=== PATIENT | female | born 1960 | race Caucasian/White ===

== ENCOUNTER 2017-02-20 11:05 | Emergency (ER) ==
[2017-02-20 11:13] VITALS: BP 152/103; TEMP 100; BMI 20.5
[2017-02-20] MEDS ORDERED: SOLU-MEDROL 125 MG IVP STA (11:23)
[2017-02-20] MEDS ORDERED: DUONEB NEB STA ×2 (11:23→12:37)
[2017-02-20 11:40] LABS: BASOPHILS % (AUTO) 0.2 % (0.0-3.0); EOSINOPHILS # (AUTO) 0.2 K/ul (0.0-0.7); EOSINOPHILS % (AUTO) 1.4 % (0.0-7.0); HEMATOCRIT 42.1 % (37.0-47.0); HEMOGLOBIN 14.6 g/dl (12.0-16.0); IMMATURE GRANULOCYTE % (AUTO) 0.3 % (0.0-5.0); LYMPHOCYTES # (AUTO) 2.4 K/uL (0.60-3.4); LYMPHOCYTES % (AUTO) 18.7 (10.0-50.0); MEAN CORPUSCULAR HGB CONC 34.7 (31.8-35.4); MEAN CORPUSCULAR VOLUME 86.6 fl (81.0-99.0); MONOCYTES % (AUTO) 7.8 (0-10); NEUTROPHILS % (AUTO) 71.6; PLATELET COUNT 231 10^3/uL (140-440); RED BLOOD COUNT 4.86 10^6/ul (4.20-5.40); WHITE BLOOD COUNT 12.56 K/ul (4.6-10.2)
[2017-02-20 11:46] LABS: ABG BASE EXCESS 0 (-2.0-2.0); ABG HCO3 25.2 (22.0-26.0); ABG PCO2 40.7 mmHg (35-45); ABG PH 7.399 (7.35-7.45); ABG TCO2 26 (22.0-28.0)
[2017-02-20 12:07] LABS: ALANINE AMINOTRANSFERASE 22 U/L (12-78); ALBUMIN/GLOBULIN RATIO 1.29; ALKALINE PHOSPHATASE 91 U/L (42-98); ANION GAP 14.2; ASPARTATE AMINO TRANSFERASE 24 U/L (15-37); BILIRUBIN,TOTAL 0.31 mg/dL (0.00-1.20); BLOOD UREA NITROGEN 14 mg/dL (7-18); BUN/CREATININE RATIO 17.28; CALCIUM 9.4 mg/dL (8.2-10.2); CARBON DIOXIDE 22 mmol/L (21-32); CHLORIDE 106 mmol/L (98-107); CREATINE KINASE 111 U/L; CREATININE 0.81 mg/dL (0.60-1.30); GLUCOSE 81 mg/dL (70-110); POTASSIUM 4.2 mmol/L (3.5-5.10); SODIUM 138 mmol/L (136-145); TOTAL PROTEIN 7.1 g/dL (6.4-8.2)
[2017-02-20 12:15] LABS: FLU INTERNAL QC INTERNAL QC VALID; RAPID FLU A NEGATIVE (NEGATIVE); RAPID FLU B NEGATIVE (NEGATIVE)
--- NOTE | 2017-02-20 12:20 | CT ---
EXAM: CT chest without contrast. HISTORY: Cough. COMPARISON: None available. TECHNIQUE: Multiple axial images of the chest were obtained without intravenous contrast. Images we re reformatted in the sagittal and coronal planes. FINDINGS: Evaluation for lymphadenopathy is limited by lack of intravenous contrast. There are mult iple small mediastinal lymph nodes present. Calcified mediastinal and right hilar lymph nodes also p resent. Heart size is normal. There is no pericardial effusion. There are calcified granulomatous changes noted in the lungs. Dependent mucus in both main bronchi. No consolidation, pleural effusio n or pneumothorax identified. Focal linear density in the right lower lobe on axial image 32 likely an area of scarring. Limited images of the upper abdomen demonstrate no acute abnormality. There has been previous ACDF. Degenerative changes present in the thoracic spine. IMPRESSION: No acute cardiopulmonary process.
[2017-02-20] MEDS ORDERED: NORCO 10-325 PO STA (12:38)
--- NOTE | 2017-02-20 12:42 | ED.PDOC ---
General ED Provider: Dr. JAYESH SAINI Chief Complaint: Respiratory Complaint Stated Complaint: COUGH, WHEEZ Time Seen by Physician: 11:00 (SEENN WITH NURSE AT ALL TIMES ) Mode of Arrival: Walk-In Information Source: Patient Exam Limitations: No limitations Primary Care Provider: MIGUEL LENZ Nursing and Triage Documentation Reviewed and Agree: Yes Respiratory Complaint Exam - Respiratory Complaint/Exam Symptoms Are: Resolved Timing: Intermittent Initial Severity: Moderate Current Severity: Moderate Location: Throat, Chest Character: Reports: Non-productive cough Aggravating: Reports: None Alleviating: Reports: Bronchodilators, Spontaneous resolution Associated Signs and Symptoms: Reports: Wheezing. Denies: Rapid breathing, Dyspnea, Fever, Chills, Chest pain, Pleuritic chest pain, Hemoptysis, Dizziness , Calf pain, Calf swelling, Edema, URI, Nasal congestion, Hoarseness, Sinus discomfort, Vomiting, Sore throat, Weight loss, Decreased oral intake, Increased thirst, Increased appetite, Increased urination Related History: Reports: Similar episode History of Healthcare-Acquired Pneumonia: No Related Surgical History: Reports: None Pulmonary Embolism Risk Factors: Smoking Cardiac Risk Factors: Reports: Smoking Pseudomonas Risk Factors: Reports: None Tuberculosis Risk Factors: Reports: None Status Asthmaticus Risk Factors: Reports: None Home Oxygen Use: No Recent Stress Test: No Recent Echo/LV Function: No Current Antibiotic Use: No Current Asthma Medication Use: No Respiratory Distress: None Inadequate Respiratory Effort: No Dysphagia Present: No Stridor Present: No JVD Present: No Retractions: Not Present Diminished Breath Sounds: Yes Prolonged Respiration: Expiratory phase Sinus Tenderness: None Grunting Respirations: No Kussmaul Respirations: No Differential Diagnoses: Asthma, Pneumonia, Bronchitis Review of Systems - Review Of Systems Constitutional: Reports: No symptoms Eyes: Reports: No symptoms Ears, Nose, Mouth, Throat: Reports: No symptoms Respiratory: Reports: Cough, Wheezing Cardiac: Reports: No symptoms GI: Reports: No symptoms : Reports: No symptoms Musculoskeletal: Reports: No symptoms Skin: Reports: No symptoms Neurological: Reports: No symptoms Endocrine: Reports: No symptoms Hematologic/Lymphatic: Reports: No symptoms All Other Systems: Reviewed and Negative Past Medical History - Past Medical History Previously Healthy: Yes Endocrine: Reports: None Cardiovascular: Reports: None Respiratory: Reports: Asthma Hematological: Reports: None Gastrointestinal: Reports: None Genitourinary: Reports: None Neuro/Psych: Reports: None Musculoskeletal: Reports: None Cancer: Reports: None Last Menstrual Period: none - Surgical History General Surgical History: Reports: None - Family History Family History: Reports: None - Social History Smoking Status: Current every day smoker Hx Substance Use: No Alcohol Screening: None Physical Exam - Physical Exam Appearance: Well-appearing, No pain distress, Well-nourished Eyes: REMIGIO, EOMI, Conjunctiva clear ENT: Ears normal, Nose normal, Oropharynx normal Respiratory: Airway patent, Breath sounds clear, Breath sounds equal, Respirations nonlabored Cardiovascular: RRR, Pulses normal, No rub, No murmur GI/: Soft, Nontender, No masses, Bowel sounds normal, No Organomegaly Musculoskeletal: Normal strength, ROM intact, No edema, No calf tenderness Skin: Warm, Dry, Normal color Neurological: Sensation intact, Motor intact, Reflexes intact, Cranial nerves intact, Alert, Oriented Psychiatric: Affect appropriate, Mood appropriate Interpretation - Radiology Interpretation Radiology Interpretation By: Radiologist Radiology Results: No acute changes - Clinical Quality Manager Rate: Normal Rhythm: Sinus Ectopy: None - EKG Interpretation Rate: Normal Rhythm: Sinus Ectopy: None Indian: NL ST Segment: Normal Critical Care Note - Critical Care Note Total Time (mins): 0 Course - Course Hematology/Chemistry: 02/20/17 11:34 02/20/17 11:34 Orders, Labs, Meds: Lab Review 02/20/17 02/20/17 02/20/17 11:21 11:34 11:34 WBC 12.56 H RBC 4.86 Hgb 14.6 Hct 42.1 MCV 86.6 MCH 30.0 MCHC 34.7 RDW Coeff of Jules 13.0 Plt Count 231 Immature Gran % (Auto) 0.3 Neut % (Auto) 71.6 Lymph % (Auto) 18.7 [place] % (Auto) 7.8 Eos % (Auto) 1.4 Baso % (Auto) 0.2 Immature Gran # (Auto) 0.0 Neut # 9.0 H Lymph # 2.4 Josephine # 1.0 Eos # 0.2 Baso # 0.0 Puncture Site R brach O2 Saturation 96.0 ABG pH 7.399 ABG pCO2 40.7 ABG pO2 82.0 L ABG HCO3 25.2 ABG Total CO2 26 ABG Base Excess 0 Joe Test + FiO2 % 21.0 Sodium 138 Potassium 4.2 Chloride 106 Carbon Dioxide 22 Anion Gap 14.2 BUN 14 Creatinine 0.81 Estimated GFR (MDRD) 74.00 BUN/Creatinine Ratio 17.28 Glucose 81 Calcium 9.4 Total Bilirubin 0.31 AST 24 ALT 22 Alkaline Phosphatase 91 Total Creatine Kinase 111 Troponin I < 0.0100 Total Protein 7.1 Albumin 4.0 Globulin 3.1 Albumin/Globulin Ratio 1.29 Influenza A (Rapid) Influenza B (Rapid) 02/20/17 11:50 WBC RBC Hgb Hct MCV MCH MCHC RDW Coeff of Jules Plt Count Immature Gran % (Auto) Neut % (Auto) Lymph % (Auto) [place] % (Auto) Eos % (Auto) Baso % (Auto) Immature Gran # (Auto) Neut # Lymph # Josephine # Eos # Baso # Puncture Site O2 Saturation ABG pH ABG pCO2 ABG pO2 ABG HCO3 ABG Total CO2 ABG Base Excess Joe Test FiO2 % Sodium Potassium Chloride Carbon Dioxide Anion Gap BUN Creatinine Estimated GFR (MDRD) BUN/Creatinine Ratio Glucose Calcium Total Bilirubin AST ALT Alkaline Phosphatase Total Creatine Kinase Troponin I Total Protein Albumin Globulin Albumin/Globulin Ratio Influenza A (Rapid) Negative Influenza B (Rapid) Negative Orders Category Date Time Status ABG DRAW REQUEST Stat CARDIO 02/20/17 11:21 Completed EKG-(ED ONLY) Stat CARDIO 02/20/17 11:21 Completed NEBULIZER TREATMENT Stat CARDIO 02/20/17 11:23 Completed NEBULIZER TREATMENT Stat CARDIO 02/20/17 12:37 Ordered ED IV/MEDIPORT/POWERPORT .ONCE EMERGENCY 02/20/17 11:21 Active ABG Stat LAB 02/20/17 11:21 Completed CBC W/ AUTO DIFF Stat LAB 02/20/17 11:34 Completed COMPREHENSIVE METABOLIC PANEL Stat LAB 02/20/17 11:34 Completed CREATINE KINASE Stat LAB 02/20/17 11:34 Completed MOLECULAR GROUP A STREP Stat LAB 02/20/17 11:50 Results RAPID FLU A/B Stat LAB 02/20/17 11:50 Completed STREP SCREEN Stat LAB 02/20/17 11:50 Results TROPONIN I Stat LAB 02/20/17 11:34 Completed 0.9 % Sodium Chloride [Saline Flush] MEDS 02/20/17 11:21 Active 1 syr IVF PRN PRN Hydrocodone Bit/Acetaminophen [[place] 10-325] MEDS 02/20/17 12:38 Stat 1 tab PO ONCE STA Ipratropium/Albuterol Neb [Duoneb] MEDS 02/20/17 11:23 Discontinued 1 vial NEB ONCE STA Ipratropium/Albuterol Neb [Duoneb] MEDS 02/20/17 12:37 Stat 1 vial NEB ONCE STA Methylprednisolone Sod Succ/Pf [Solu-Medrol 125 mg] MEDS 02/20/17 11:23 Discontinued 125 mg IVP ONCE STA CT CHEST W/O CONTRAST Stat RADS 02/20/17 11:22 Completed Medications Generic Name Dose Route Start Last Admin Trade Name Freq PRN Reason Stop Dose Admin Sodium Chloride 1 syr 02/20/17 11:21 02/20/17 11:42 Saline Flush IVF 1 syr PRN PRN Administration To flush IV Discontinued Medications Generic Name Dose Route Start Last Admin Trade Name Freq PRN Reason Stop Dose Admin Acetaminophen/Hydrocodone Bitart 1 tab 02/20/17 12:38 [place] 10-325 PO 02/20/17 12:39 ONCE STA Albuterol/Ipratropium 1 vial 02/20/17 11:23 02/20/17 11:32 Duoneb NEB 02/20/17 11:24 1 vial ONCE STA Administration Albuterol/Ipratropium 1 vial 02/20/17 12:37 Duoneb NEB 02/20/17 12:38 ONCE STA Methylprednisolone Sodium Succinate 125 mg 02/20/17 11:23 02/20/17 11:41 Solu-Medrol 125 Mg IVP 02/20/17 11:24 125 mg ONCE STA Administration Vital Signs: Temp Pulse Resp BP Pulse Ox 02/20/17 11:05 100.0 F H 79 24 152/103 H 96 Departure - Departure Time of Disposition: 12:42 Disposition: HOME SELF-CARE Discharge Problem: Asthma Instructions: Asthma (ED), Wheezing (ED), Bronchospasm (ED), How Your Lungs Work (ED) Condition: Good Pt referred to PMD for follow-up: Yes Additional Instructions: Please call your Family Physician as soon as possible to schedule a follow-up appointment. Allergies/Adverse Reactions: Allergies morphine Adverse Reaction (Verified 02/20/17 11:10) Penicillins Adverse Reaction (Verified 02/20/17 11:10) prochlorperazine [From Compazine] Adverse Reaction (Verified 02/20/17 11:10) promethazine [From Phenergan] Adverse Reaction (Verified 02/20/17 11:10) Home Medications: Ambulatory Orders Alprazolam [Xanax] 0.5 mg PO PRN PRN 02/20/17 Hydrocodone Bit/Acetaminophen [[place] 7.5-325] 1 tab PO TID 02/20/17 Temazepam [Restoril] 15 mg PO BEDTIME 02/20/17 Tizanidine HCl [Zanaflex] 4 mg PO PRN PRN 02/20/17
== END 2017-02-20 13:01 | disposition home or self-care (01) ==
LOC: ED 11:05
DX: J45.909 Unspecified asthma, uncomplicated (principal); F17.210 Nicotine dependence, cigarettes, uncomplicated
CPT/HCPCS: 36415; 80053; 82550; 82803; 84484; 85025; 87651; 87804; 87880; 93005; 93010; 94640; 96374; 99283

== ENCOUNTER 2017-03-29 23:01 | Emergency (ER) ==
[2017-03-29 23:05] VITALS: TEMP 98; BMI 20.1
[2017-03-29] MEDS ORDERED: ZOFRAN 4 MG/2 ML IM STA (23:21)
[2017-03-29] MEDS ORDERED: DILAUDID 1 MG/ML SYRINGE IM STA (23:21)
--- NOTE | 2017-03-29 23:55 | ED.PDOC ---
General ED Provider: Dr. TIM FARIAS Chief Complaint: Back Pain Stated Complaint: Was moved some furniture at work, which started the pain in the neck radiates ro right arm. Time Seen by Physician: 23:53 Mode of Arrival: Walk-In Information Source: Patient, Family Primary Care Provider: MIGUEL LENZ Nursing and Triage Documentation Reviewed and Agree: Yes Musculoskeletal Complaint Exam - Neck Pain Complaint/Exam Mechanism of Injury: Reports: No known trauma Symptoms Are: Still present Timing: Constant Episodes Lasting: Days Initial Severity: Moderate Current Severity: Severe Location: Reports: Radiating Character: Reports: Aching, Throbbing Aggravating: Reports: Position, Movement Alleviating: Reports: None Associated Signs and Symptoms: Denies: Swelling, Redness, Bruising, Fever, Nuchal rigidity, Weakness, Headache, Paresthesia Meningitis Risk Factors: Reports: None Cervical Spine Injury Risk Factors: Reports: None Related Surgical History: Reports: None Carotid Bruit Present: No Pain on Passive Flexion: No Positive Kernig's Sign: No ROM Limited In: Present: Flexion, Extension, Right, Left Tenderness: Present: Midline, Paraspinal Radiates to: Present: Right arm Focal Weakness: Present: None Focal Sensory Loss: Reports: None Differential Diagnoses: Cervical Fracture, Dystonia, Sprain, Strain Review of Systems - Review Of Systems Constitutional: Reports: No symptoms Eyes: Reports: No symptoms Ears, Nose, Mouth, Throat: Reports: No symptoms Respiratory: Reports: No symptoms Cardiac: Reports: No symptoms GI: Reports: No symptoms : Reports: No symptoms Musculoskeletal: Reports: Back pain, Joint pain Skin: Reports: No symptoms Neurological: Reports: No symptoms Endocrine: Reports: No symptoms Hematologic/Lymphatic: Reports: No symptoms All Other Systems: Reviewed and Negative Past Medical History - Past Medical History Previously Healthy: Yes Endocrine: Reports: None Cardiovascular: Reports: None Respiratory: Reports: Asthma Hematological: Reports: None Gastrointestinal: Reports: None Genitourinary: Reports: None Neuro/Psych: Reports: None Musculoskeletal: Reports: None Cancer: Reports: None Last Menstrual Period: 22 YEARS AGO - Surgical History General Surgical History: Reports: None - Family History Family History: Reports: None - Social History Smoking Status: Current every day smoker, Heavy tobacco smoker Smoking Cessation Counseling Time: > 10 min Hx Substance Use: No Alcohol Screening: None - Immunizations Tetanus Shot up to Date: Yes Physical Exam - Physical Exam Appearance: Ill-appearing Pain Distress: Moderate Eyes: REMIGIO, EOMI, Conjunctiva clear ENT: Ears normal, Nose normal, Oropharynx normal Respiratory: Airway patent, Breath sounds clear, Breath sounds equal, Respirations nonlabored Cardiovascular: RRR, Pulses normal, No rub, No murmur GI/: Soft, Nontender, No masses, Bowel sounds normal, No Organomegaly Musculoskeletal: Normal strength, ROM intact, No edema, No calf tenderness Skin: Warm, Dry, Normal color Neurological: Sensation intact, Motor intact, Reflexes intact, Cranial nerves intact, Alert, Oriented Psychiatric: Affect appropriate, Mood appropriate Interpretation - Radiology Interpretation Radiology Interpretation By: Radiologist Radiology Results: Negative Exam Interpreted: CT Scan Critical Care Note - Critical Care Note Total Time (mins): 0 Course - Course Orders, Labs, Meds: Orders Category Date Time Status Hydromorphone HCl [Dilaudid 1 mg/ml Syringe] MEDS 03/29/17 23:21 Discontinued 1 mg IM ONCE STA Ondansetron HCl/Pf [Zofran 4 mg/2 ml] MEDS 03/29/17 23:21 Discontinued 4 mg IM ONCE STA CT CERVICAL SPINE W/O CONTRAST Stat RADS 03/29/17 23:21 Completed Medications Discontinued Medications Generic Name Dose Route Start Last Admin Trade Name Freq PRN Reason Stop Dose Admin Hydromorphone HCl 1 mg 03/29/17 23:21 03/29/17 23:39 Dilaudid 1 Mg/Ml Syringe IM 03/29/17 23:22 1 mg ONCE STA Administration Ondansetron HCl 4 mg 03/29/17 23:21 03/29/17 23:40 Zofran 4 Mg/2 Ml IM 03/29/17 23:22 4 mg ONCE STA Administration Vital Signs: Temp Pulse Resp BP Pulse Ox 03/29/17 23:01 98 F 106 H 22 137/106 H 97 Departure - Departure Time of Disposition: 00:06 Disposition: HOME SELF-CARE Discharge Problem: Neck sprain Qualifiers: Encounter type: initial encounter Qualified Code(s): S13.9XXA - Sprain of joints and ligaments of unspecified parts of neck, initial encounter Instructions: Cervical Strain (ED) Condition: Good Pt referred to PMD for follow-up: No Additional Instructions: rest hot pack continue taking home medications Allergies/Adverse Reactions: Allergies morphine Adverse Reaction (Verified 02/20/17 11:10) Penicillins Adverse Reaction (Verified 02/20/17 11:10) prochlorperazine [From Compazine] Adverse Reaction (Verified 02/20/17 11:10) promethazine [From Phenergan] Adverse Reaction (Verified 02/20/17 11:10) Home Medications: Ambulatory Orders Alprazolam [Xanax] 0.5 mg PO PRN PRN 02/20/17 Hydrocodone Bit/Acetaminophen [[place] 7.5-325] 1 tab PO TID 02/20/17 Temazepam [Restoril] 15 mg PO BEDTIME 02/20/17 Tizanidine HCl [Zanaflex] 4 mg PO PRN PRN 02/20/17 Disposition Discussed With: Patient, Family
--- NOTE | 2017-03-30 00:02 | CT ---
EXAM: CT of the cervical spine without contrast. HISTORY: Neck pain. Previous neck surgery. PROCEDURE: Contiguous axial CT images of the cervical spine without contrast with coronal and sagitt al reformats. FINDINGS: There is anterior plate and screw fixation at C5, C6 and C7 which appears intact and in blane quate position. There is normal alignment of the cervical vertebral bodies and facets. The vertebra l body heights are maintained. There is multilevel disc space narrowing. There are small posterior osteophytes at multiple levels of the cervical spine. There is multilevel facet arthropathy. The C1 -2 relationship is maintained. No prevertebral soft tissue abnormality. Impression: Anterior fusion as described with normal alignment of the cervical spine. Degenerative changes as described.
[2017-03-30 00:10] VITALS: BP 136/82
== END 2017-03-30 00:13 | disposition home or self-care (01) ==
LOC: ED 23:01
DX: S13.9XXA Sprain of joints and ligaments of unspecified parts of neck, initial encounter (principal); X50.0XXA Overexertion from strenuous movement or load, initial encounter; F17.210 Nicotine dependence, cigarettes, uncomplicated
CPT/HCPCS: 96372; 99283

== ENCOUNTER 2017-11-17 13:33 | Emergency (ER) | payer OTHER ==
[2017-11-17 13:39] VITALS: BP 138/92; TEMP 99; BMI 22.8
[2017-11-17] MEDS ORDERED: TORADOL IVP STA (14:03)
[2017-11-17] MEDS ORDERED: SODIUM CHLORIDE 1,000 ML IV STA (14:04)
--- NOTE | 2017-11-17 14:14 | ED.PDOC ---
General ED Provider: Dr. YONY LUNA MD Chief Complaint: Urinary Problem Stated Complaint: pain in Left flank, dysuria, hematuria Time Seen by Physician: 14:00 Mode of Arrival: Walk-In Information Source: Patient Exam Limitations: No limitations Primary Care Provider: MIGUEL LENZ Nursing and Triage Documentation Reviewed and Agree: Yes Does patient meet sepsis criteria?: No System Inflammatory Response Syndrome: Not Applicable Sepsis Protocol: For patient's 13 years and over: Temp is 96.8 and below OR 101 and greater Pulse >90 BPM Resp >20/minute Acutely Altered Mental Status Are patient's symptoms suggestive of a new infection, such as: -Pneumonia -Skin, Soft Tissue -Endocarditis -UTI -Bone, Joint Infection -Implantable Device -Acute Abdominal Infection -Wound Infection -Meningitis -Blood Stream Catheter Infection -Unknown Review of Systems - Review Of Systems Constitutional: Reports: Other Eyes: Reports: No symptoms Ears, Nose, Mouth, Throat: Reports: No symptoms Respiratory: Reports: No symptoms Cardiac: Reports: No symptoms GI: Reports: No symptoms, Abdominal pain, Nausea : Reports: Burning, Dysuria, Flank pain, Hematuria Musculoskeletal: Reports: No symptoms Skin: Reports: No symptoms Neurological: Reports: No symptoms Endocrine: Reports: No symptoms Hematologic/Lymphatic: Reports: No symptoms All Other Systems: Reviewed and Negative Past Medical History - Past Medical History Previously Healthy: Yes Endocrine: Reports: None Cardiovascular: Reports: None Respiratory: Reports: Asthma Hematological: Reports: None Gastrointestinal: Reports: None Genitourinary: Reports: None Neuro/Psych: Reports: None Musculoskeletal: Reports: None Cancer: Reports: None Last Menstrual Period: none - Surgical History General Surgical History: Reports: None - Family History Family History: Reports: None - Social History Smoking Status: Current every day smoker, Heavy tobacco smoker Hx Substance Use: No Alcohol Screening: None Physical Exam - Physical Exam Appearance: Well-appearing, No pain distress, Well-nourished Pain Distress: Moderate Eyes: REMIGIO, EOMI, Conjunctiva clear ENT: Ears normal, Nose normal, Oropharynx normal Respiratory: Airway patent, Breath sounds clear, Breath sounds equal, Respirations nonlabored Cardiovascular: RRR, Pulses normal, No rub, No murmur GI/: Bowel sounds normal, Tender Musculoskeletal: Normal strength, ROM intact, No edema, No calf tenderness Skin: Warm, Dry, Normal color Critical Care Note - Critical Care Note Total Time (mins): 0 Course - Course Hematology/Chemistry: 11/17/17 02:15 Orders, Labs, Meds: Lab Review 11/17/17 11/17/17 02:15 13:50 WBC 10.82 H RBC 4.37 Hgb 13.3 Hct 38.7 MCV 88.6 MCH 30.4 MCHC 34.4 RDW Coeff of Jules 13.3 Plt Count 221 Immature Gran % (Auto) 0.4 Neut % (Auto) 70.0 Lymph % (Auto) 19.3 [place] % (Auto) 9.4 Eos % (Auto) 0.8 Baso % (Auto) 0.1 Immature Gran # (Auto) 0.0 Neut # (Auto) 7.6 H Lymph # (Auto) 2.1 [place] # (Auto) 1.0 Eos # (Auto) 0.1 Baso # (Auto) 0.0 Urine Color Yellow Urine Clarity Clear Urine pH 6.0 Ur Specific [place] <=1.005 Urine Protein Negative Urine Glucose (UA) Negative Urine Ketones Negative Urine Blood 2+ Urine Nitrite Negative Urine Bilirubin Negative Urine Urobilinogen 0.2 Ur Leukocyte Esterase 1+ Urine Microscopic RBC 5-10 Urine Microscopic WBC 10-20 Ur Squamous Epith Cells Not present Orders Category Date Time Status CBC W/ AUTO DIFF Stat LAB 11/17/17 02:15 Completed URINALYSIS C & S IF INDICATED Stat LAB 11/17/17 13:50 Completed URINE CULTURE Stat LAB 11/17/17 13:50 Received Ketorolac Tromethamine [Toradol] MEDS 11/17/17 14:03 Discontinued 60 mg IVP ONCE STA Sodium Chloride 0.9% [Sodium Chloride] 1,000 ml MEDS 11/17/17 14:[address] ABD/PEL WO RENAL STONE PROT Stat RADS 11/17/17 14:05 Completed Medications Discontinued Medications Generic Name Dose Route Start Last Admin Trade Name Freq PRN Reason Stop Dose Admin Sodium Chloride 1,000 mls @ 1,000 mls/hr 11/17/17 14:04 11/17/17 14:41 Sodium Chloride IV 11/17/17 15:03 1,000 mls/hr BOLUS STA Administration Ketorolac Tromethamine 60 mg 11/17/17 14:03 11/17/17 14:19 Toradol IVP 11/17/17 14:04 60 mg ONCE STA Administration Vital Signs: Temp Pulse Resp BP Pulse Ox 11/17/17 13:34 99.0 F 96 H 20 138/92 H 95 Departure - Departure Time of Disposition: 15:13 Disposition: HOME SELF-CARE Discharge Problem: Urinary tract infection Condition: Fair Pt referred to PMD for follow-up: Yes IPMP verified?: No Allergies/Adverse Reactions: Allergies morphine Adverse Reaction (Verified 11/17/17 13:38) Penicillins Adverse Reaction (Verified 11/17/17 13:38) prochlorperazine [From Compazine] Adverse Reaction (Verified 11/17/17 13:38) promethazine [From Phenergan] Adverse Reaction (Verified 11/17/17 13:38) Home Medications: Ambulatory Orders Alprazolam [Xanax] 0.5 mg PO PRN PRN 02/20/17 Hydrocodone Bit/Acetaminophen [[place] 7.5-325] 1 tab PO TID 02/20/17 Temazepam [Restoril] 15 mg PO BEDTIME 02/20/17 Tizanidine HCl [Zanaflex] 4 mg PO PRN PRN 02/20/17 Ciprofloxacin/Ciprofloxa HCl [Ciprofloxacin ER 500 mg Tablet] 500 mg PO 1-2XD # 14 tbmp.24hr MDD 1000mg 11/17/17
--- NOTE | 2017-11-17 14:56 | CT ---
EXAM: CT ABDOMEN AND PELVIS HISTORY: Flank pain, left. TECHNIQUE: CT abdomen and pelvis without intravenous contrast. Images were reconstructed using 3 mm section thickness. Reformations were prepared. COMPARISON: None FINDINGS: Diagnostic limitations exist without including contrast enhanced images. There is no nephrolithiasis , hydronephrosis or perinephric fat stranding. Ureters cannot be followed in their entirety secondar y to the patient's anatomy. Multiple pelvic calcifications are seen suggesting phleboliths. No conv incing evidence of intra ureteral calculus. Urinary bladder has circumferential wall thickening. No focal hepatic lesions identified. Spleen within normal limits. Gallbladder is absent. Pancreas and adrenal glands appear normal. Normal abdominal aorta. There are several prominent periaortic and iliac chain lymph nodes, at least one of which is pathologically enlarged at 15 mm short axis (to th e left of the aortic bifurcation). Stomach is within normal limits. The patient apparently has a his tory of previous appendectomy. Normal bowel gas pattern. No uterus is present. There is no ascites . No ventral abdominal wall hernia. Bones reveal early degenerative endplate changes of the spine. Lung bases are clear. No pneumoperitoneum is seen. IMPRESSION: 1. No nephrolithiasis, hydronephrosis or convincing evidence of intra ureteral calculus. Circumfere ntial thickening of the urinary bladder which may be related to cystitis. Follow up with urology can be considered. 2. Lymph nodes, at least one of which is pathologically enlarged. This could indicate a neoplastic p rocess.
[2017-11-17] MEDS ORDERED: LIDOCAINE HCL 1% SDV IM STA (15:11)
[2017-11-17] MEDS ORDERED: ROCEPHIN IM STA (15:11)
[2017-11-17] MEDS ORDERED: ROCEPHIN 1 GM in SODIUM CHLORIDE 50 ML IV STA (15:24)
[2017-11-17] MEDS ORDERED: ROCEPHIN ONE (15:27)
== END 2017-11-17 16:31 | disposition home or self-care (01) ==
LOC: ED 13:33
DX: N39.0 Urinary tract infection, site not specified (principal); F17.210 Nicotine dependence, cigarettes, uncomplicated
CPT/HCPCS: 36415; 74176; 81001; 85025; 87086; 87186; 96361; 96365; 96375; 99283

== ENCOUNTER 2018-07-18 00:30 | Emergency (ER) | payer OTHER ==
[2018-07-18 00:43] VITALS: TEMP 98.7; BMI 23.6
[2018-07-18] MEDS: DUONEB NEB STA ×2 (00:45→02:00)
--- NOTE | 2018-07-18 00:56 | ED.PDOC ---
General ED Provider: Dr. YONY LUNA MD Chief Complaint: Shortness of Air Stated Complaint: SOB Time Seen by Physician: 00:43 Mode of Arrival: Walk-In Information Source: Patient Exam Limitations: No limitations Primary Care Provider: MIGUEL LENZ Nursing and Triage Documentation Reviewed and Agree: Yes Does patient meet sepsis criteria?: No If yes, has appropriate treatment been initiated?: Yes System Inflammatory Response Syndrome: Pulse >90 BPM Sepsis Protocol: For patient's 13 years and over: Temp is 96.8 and below OR 101 and greater Pulse >90 BPM Resp >20/minute Acutely Altered Mental Status Are patient's symptoms suggestive of a new infection, such as: -Pneumonia -Skin, Soft Tissue -Endocarditis -UTI -Bone, Joint Infection -Implantable Device -Acute Abdominal Infection -Wound Infection -Meningitis -Blood Stream Catheter Infection -Unknown Review of Systems - Review Of Systems Constitutional: Reports: No symptoms Eyes: Reports: No symptoms Ears, Nose, Mouth, Throat: Reports: No symptoms Respiratory: Reports: Cough, Short of air, Wheezing Cardiac: Reports: No symptoms GI: Reports: No symptoms : Reports: No symptoms Musculoskeletal: Reports: No symptoms Skin: Reports: No symptoms Neurological: Reports: No symptoms Endocrine: Reports: No symptoms Hematologic/Lymphatic: Reports: No symptoms All Other Systems: Reviewed and Negative Past Medical History - Past Medical History Previously Healthy: Yes Endocrine: Reports: None Cardiovascular: Reports: None Respiratory: Reports: Asthma Hematological: Reports: None Gastrointestinal: Reports: None Genitourinary: Reports: None Neuro/Psych: Reports: None Musculoskeletal: Reports: None Cancer: Reports: None Last Menstrual Period: 1996 - Surgical History General Surgical History: Reports: None - Family History Family History: Reports: None - Social History Smoking Status: Vaping Hx Substance Use: No Alcohol Screening: None - Immunizations Tetanus Shot up to Date: Yes Physical Exam - Physical Exam Appearance: Well-appearing Ill-appearing: Moderate Pain Distress: None Eyes: REMIGIO, EOMI, Conjunctiva clear ENT: Ears normal Neck: Supple Respiratory: Breath sounds diminished, Wheezes Cardiovascular: RRR GI/: Soft Musculoskeletal: Normal strength, ROM intact, No edema, No calf tenderness Skin: Warm, Dry, Normal color Neurological: Sensation intact, Motor intact, Reflexes intact, Cranial nerves intact, Alert, Oriented Psychiatric: Affect appropriate, Mood appropriate Critical Care Note - Critical Care Note Total Time (mins): 0 Course - Course Hematology/Chemistry: 07/18/18 02:25 07/18/18 02:25 Orders, Labs, Meds: Lab Review 07/18/18 07/18/18 02:25 02:25 WBC 11.05 H RBC 4.53 Hgb 13.5 Hct 39.7 MCV 87.6 MCH 29.8 MCHC 34.0 RDW Coeff of Jules 12.8 Plt Count 208 Immature Gran % (Auto) 0.4 Neut % (Auto) 72.1 Lymph % (Auto) 18.6 [place] % (Auto) 7.0 Eos % (Auto) 1.6 Baso % (Auto) 0.3 Immature Gran # (Auto) 0.0 Neut # (Auto) 8.0 H Lymph # (Auto) 2.1 [place] # (Auto) 0.8 Eos # (Auto) 0.2 Baso # (Auto) 0.0 Sodium 140.7 Potassium 3.27 L Chloride 107.5 H Carbon Dioxide 25.9 Anion Gap 10.57 BUN 12.2 Creatinine 0.70 Estimated GFR (MDRD) 87.00 BUN/Creatinine Ratio 17.42 Glucose 106.5 H Calcium 9.18 Orders Category Date Time Status EKG-(ED ONLY) Stat CARDIO 07/18/18 00:48 Completed NEBULIZER TREATMENT Stat CARDIO 07/18/18 00:43 Completed NEBULIZER TREATMENT Stat CARDIO 07/18/18 02:00 Completed IV [ED IV/MEDIPORT/POWERPORT] .ONCE EMERGENCY 07/18/18 00:55 Active BMP [BASIC METABOLIC PANEL] Stat LAB 07/18/18 02:25 Completed CBC W/ AUTO DIFF Stat LAB 07/18/18 02:25 Completed 0.9 % Sodium Chloride [Saline Flush] MEDS 07/18/18 00:55 Ordered 1 syr IVF PRN PRN Ipratropium/Albuterol Neb [Duoneb] MEDS 07/18/18 01:57 Discontinued 1 vial NEB .STK-MED ONE Ipratropium/Albuterol Neb [Duoneb] MEDS 07/18/18 00:43 Discontinued 1 vial NEB ONCE STA Ipratropium/Albuterol Neb [Duoneb] MEDS 07/18/18 01:59 Discontinued 1 vial NEB ONCE STA Methylprednisolone Sod Succ/Pf [Solu-Medrol 125 mg] MEDS 07/18/18 00:55 Discontinued 125 mg IVP ONCE STA Sulfamethoxazole/Trimethoprim [Bactrim Ds 800/160 mg] MEDS 07/18/18 03:00 Discontinued 1 tab PO ONCE STA CXR [CHEST, 2 VIEWS PA & LAT] Stat RADS 07/18/18 01:23 Completed Medications Generic Name Dose Route Start Last Admin Trade Name Freq PRN Reason Stop Dose Admin Sodium Chloride 1 syr 07/18/18 00:55 07/18/18 01:04 Saline Flush IVF 1 syr PRN PRN Administration To flush IV Discontinued Medications Generic Name Dose Route Start Last Admin Trade Name Freq PRN Reason Stop Dose Admin Albuterol/Ipratropium 1 vial 07/18/18 00:43 07/18/18 00:45 Duoneb NEB 07/18/18 00:44 1 vial ONCE STA Administration Albuterol/Ipratropium 1 vial 07/18/18 01:59 07/18/18 02:00 Duoneb NEB 07/18/18 02:00 1 vial ONCE STA Administration Methylprednisolone Sodium Succinate 125 mg 07/18/18 00:55 07/18/18 01:04 Solu-Medrol 125 Mg IVP 07/18/18 00:56 125 mg ONCE STA Administration Trimethoprim/Sulfamethoxazole 1 tab 07/18/18 03:00 Bactrim Ds 800/160 Mg PO 07/18/18 03:01 ONCE STA Vital Signs: Temp Pulse Resp BP Pulse Ox 07/18/18 02:12 87 21 138/85 99 07/18/18 00:31 98.7 F 98 H 28 H 146/98 H 97 Departure - Departure Time of Disposition: 03:00 Disposition: HOME SELF-CARE Discharge Problem: Shortness of breath, Dyspnea Instructions: Acute Bronchitis (ED) Condition: Good Pt referred to PMD for follow-up: Yes IPMP verified?: No Allergies/Adverse Reactions: Allergies morphine Adverse Reaction (Verified 07/18/18 00:40) Penicillins Adverse Reaction (Verified 07/18/18 00:40) prochlorperazine [From Compazine] Adverse Reaction (Verified 07/18/18 00:40) promethazine [From Phenergan] Adverse Reaction (Verified 07/18/18 00:40) Home Medications: Ambulatory Orders Alprazolam [Xanax] 0.5 mg PO PRN PRN 02/20/17 Hydrocodone Bit/Acetaminophen [[place] 7.5-325] 1 tab PO TID 02/20/17 Temazepam [Restoril] 15 mg PO BEDTIME 02/20/17 Tizanidine HCl [Zanaflex] 4 mg PO PRN PRN 02/20/17 Albuterol Sulfate 0.083% Neb [Albuterol 0.083% Neb] 1 applic INH Q4H PRN Albuterol Sulfate [Proair Hfa] 2 puff IH Q4H PRN 07/18/18 Transfer Form Completed: No Disposition Discussed With: Patient, Family
[2018-07-18] MEDS: SOLU-MEDROL 125 MG IVP STA (01:04)
--- NOTE | 2018-07-18 01:49 | DI ---
EXAM: Chest two views HISTORY: Shortness of breath FINDINGS: Normal cardiac and mediastinal contours. Normal pulmonary vasculature. Lungs are clear. No significant abnormality of the bony thorax. IMPRESSION: Chest radiograph within normal limits.
[2018-07-18 02:13] VITALS: BP 138/85
[2018-07-18] MEDS: DUONEB NEB ONE (02:23)
[2018-07-18] MEDS: BACTRIM DS 800/160 MG PO STA (03:08)
== END 2018-07-18 03:13 | disposition home or self-care (01) ==
LOC: ED 00:30
DX: R06.02 Shortness of breath (principal); R05 Cough; R06.2 Wheezing; R06.00 Dyspnea, unspecified; J20.9 Acute bronchitis, unspecified
CPT/HCPCS: 36415; 80048; 85025; 93005; 93010; 94640; 96374; 96375; 99284